=== PATIENT | female | born 1965 | race Two or more races ===

== ENCOUNTER 2024-11-27 17:11 | Emergency (ER) | payer BC, OTHER ==
[~2024-11-27] VITALS: Ht 165.1 cm; Wt 95.9 kg
--- NOTE | 2024-11-27 17:45 | ED.PDOC ---
History of Present Illness HPI Comments 59 y/o F, with PMHx of DM presents to the ED for CC of facial numbness. Patient states, she has been experiencing right sided facial numbness/weakness with associated symptoms of a generalized headache onset, last night (11/27/24). Patient denies blurred vision, unsteady gait, nausea, or vomiting. No other s ymptoms or modifying factors present at this time. Chief Complaint: Face pain Time Seen by MD: 17:41 Reviewed Notes: Nurses Notes, Medications, Allergies Information Source: Patient Mode of Arrival: Ambulatory Severity: Moderate Timing: Days Duration: Since onset Prehospital treatment: None Past Medical History PAST MEDICAL HISTORY: DM Surgical History: Cholecystectomy [employer] History: Denies all [employer] WORKER Hx Family History Family History: Unknown Social History Smoker: Non-Smoker Alcohol: Denies ETOH Use Drugs: Denies Drug Use Lives In: Home Constitutional: denies: chills, diaphoresis, fatigue, fever, malaise, sweats, weakness, others EENTM: denies: blurred vision, double vision, ear bleeding, ear discharge, ear drainage, ear pain, ear ringing, eye pain, eye redness, hearing loss, mouth pain, mouth swelling, nasal discharge, nose bleeding, nose congestion, nose pain, photophobia, tearing, throat pain, throat swelling, voice changes, others Respiratory: denies: cough, hemoptysis, orthopnea, SOB at rest, shortness of breath, SOB with excertion, stridor, wheezing, others Cardiovascular: denies: chest pain, dizzy spells, diaphoresis, Dyspnea on exertion, edema, irregular heart beat, left arm pain, lightheadedness, palpitations, PND, syncope, others Gastrointestinal: denies: abdomen distended, abdominal pain, blood streaked bowels, constipated, diarrhea, dysphagia, difficulty swallowing, hematemesis, melena, nausea, poor appetite, poor fluid intake, rectal bleeding, rectal pain, vomiting, others Genitourinary: denies: abnormal vagina bleeding, burning, dyspareunia, dysuria, flank pain, frequency, hematuria, incontinence, pain, , vagina discharge, urgency, others Neurological: reports: right sided numbness, right sided weakness; denies: dizziness, fainting, headache, left sided numbness, left sided weakness, numbness, paresthesia, pre-existing deficit, seizure, speech problems, tingling, tremors, weakness, others Musculoskeletal: denies: back pain, gout, joint pain, joint swelling, muscle pain, muscle stiffness, neck pain, others Integumetry: denies: bruises, change in color, change in hair/nails, dryness, laceration, lesions, lumps, rash, wounds, others Allergic/Immunocompromised: denies: Difficulty Healing, Frequent Infections, Hives, Itching, others Hematologic/Lymphatic: denies: anemia, blood clots, easy bleeding, easy bruising, swollen glands, others Endocrine: denies: excessive hunger, excessive sweating, excessive thirst, excessive urination, flushing, intolerance to cold, intolerance to heat, unexplained weight gain, unexplained weight loss, others Psychiatric: denies: anxiety, bipolar disorder, depression, hopeless, panic disorder, schizophrenia, sleepless, suicidal, others All Other Systems: Reviewed and Negative Physical Exam General Appearance: No Apparent Distress, Normal HEENT: Normal ENT Inspection, Pharynx Normal Neck: Full Range of Motion, Non-Tender, Normal, Normal Inspection Respiratory: Chest Non-Tender, Lungs Clear, No Accessory Muscle Use, No Respiratory Distress, Normal Breath Sounds Cardiovascular: No Edema, No Murmur, No Gallop, Normal Peripheral Pulses, Regular Rate/Rhythm Breast Exam: Deferred Gastrointestinal: No Organomegaly, Non Tender, No Pulsatile Mass, Normal Bowel Sounds, Soft Genitalia: Deferred Pelvic: Deferred Rectal: Deferred Extremities: No calf tenderness, Normal capillary refill, Normal inspection, Normal range of motion, Non-tender, No pedal edema Musculoskeletal : Apperance: Normal Neurologic: Alert, credit report checker II-XII nml as Tested, Normal Affect, Normal Mood, No Sensory Deficits, Other (RIGHT SIDED FACIAL WEAKNESS, DECREASING NASAL LABIAL FOLD) Cerebellar Function: Normal Reflexes: Normal Skin: Dry, Normal Color, Warm Lymphatic: No Adenopathy Was a procedure done? Was a procedure done?: No Differential Dx Considerations may include: BELLS PALSY, cva. brain mass X-Ray, Labs, Meds, VS Vital Signs Date Time Temp Pulse Resp B/P (MAP) Pulse Ox O2 Delivery O2 Flow Rate FiO2 11/27/24 17:22 98.2 89 18 127/67 (87) 98 98.2 Time of 1ST Reevaluation: 18:11 Reevaluation 1ST: Unchanged Patient Education/Counseling: Diagnosis, Treatment, Prognosis, Need For Follow Up Family Education/Counseling: No Family Present Additional Information The following tests were ordered, and results were reviewed by me: HEAD W/O CONTRAST I reviewed and agreed with the following test results read by other providers: HEAD W/O CONTRAST I discussed treatment and results with medical personnel and: patient Comprehensive systems review obtained and negative except for what is stated in the HPI. pt has unilateral full face droop. head ct is unrermarkable. she lacks other neurologic deficits. she has no zoster rash. pt will be discharged home with bells palsy. i will start her on acyclovir, and prednisone Departure 1 Departure Time of Disposition: 19:08 Impression: Primary Impression: Rosa's palsy Disposition: HOME / SELF CARE / HOMELESS Condition: Good e-Prescriptions Acyclovir (Acyclovir) 800 Mg Tab 800 MG PO 5XD for 7 Days, #35 TAB Prov: ANNIE HAYES MD 11/27/24 Prednisone (Prednisone) 20 Mg Tab 20 MG PO DAILY for 7 Days, #7 TAB Prov: ANNIE HAYES MD 11/27/24 Discharged With: Self Critical Care Note Critical Care Time?: Yes (45 min-critical care time only) Critical care comment: due to concerns for patient's condition deteriorating, the care required my highest level of attention and readiness to intervene. i assessed the patient's condition, ordered the proper tests and treatments, reassessed for response and reviewed the results. i communicated with medical personnel and formulated a plan of care. total critical care time does not include any procedures Stability Stability form required: No Heart Score Heart Score: Heart Score Response (Comments) Value History N/A 0 EKG N/A 0 Age N/A 0 Risk Factors N/A 0 Troponin N/A 0 Total 0 I personally scribed for ANNIE HAYES MD ([email or web address]) on 11/27/24 at 17:45. Electronically submitted by Mya Hargrvoe ([email or web address]). I personally scribed for ANNIE HAYES MD ([email or web address]) on 11/27/24 at 17:48. Electronically submitted by Mya Hargrove ([email or web address]). I personally scribed for ANNIE HAYES MD ([email or web address]) on 11/27/24 at 18:21. E lectronically submitted by Mya Hargrove ([email or web address]). ANNIE HAYES MD November 27, 2024 17:45
--- NOTE | 2024-11-27 18:57 | DVH ---
Procedure: CT HEAD WITHOUT CONTRAST Study Date and Requested Time: 11/27/2024 06:20 PM History: left facial droop Comparison: None Dose: CTDI: 51.99 mGy DLP: 833.4 cm mGycm Technique: Multiplanar images obtained through the brain without intravenous contrast. Findings: Normal brain volume and formation. Bilateral basal ganglia physiologic calcification. No hemorrhages, masses, mass effect, midline shift, herniation or cytotoxic edema following a large v ascular territory. No intra-axial or extra-axial fluid collections. No evidence of hydrocephalus. The basal cisterns are patent. The pituitary gland, sella and parasellar regions are unremarkable. The cerebellar tonsils are in nor mal position. The cerebellum is unremarkable. The orbits and globes are unremarkable. Mild mucoperiosteal thickening of the ethmoid air cells and l eft inferior frontal sinus. The remainder of the paranasal sinuses and mastoids are clear. There are no worrisome calvarial lesions. Impression: No evidence of acute intracranial abnormality. If symptoms persist, consider MRI evaluation.
[2024-11-27] MEDS ORDERED: ACYC1TAB3 PO (19:11)
[2024-11-27] MEDS ORDERED: PRED20TA2 PO (19:11)
[2024-11-27 20:45] VITALS: BP 137/84; PULSE 71; RESP 16; TEMP 98; O2SAT 98
== END 2024-11-27 20:59 | disposition home or self-care (01) ==
LOC: ER 17:11
DX: G51.0 Bell's palsy (principal); E11.9 Type 2 diabetes mellitus without complications; Z90.49 Acquired absence of other specified parts of digestive tract
CPT/HCPCS: 70450